=== PATIENT | female | born 1985 | race Caucasian/White ===

== ENCOUNTER 2025-03-03 14:18 | Outpatient (CLI) | payer OTHER, SELFPAY ==
[2025-03-03 15:54] LABS: HCG,Quantitative 158880 mIU/ml (0-5.42)
[2025-03-04 08:13] LABS: Progesterone 28.1 ng/mL (.)
== END 2025-03-03 23:59 | disposition home or self-care (01) ==
PROVIDERS: Visit Provider Obstetrics & Gynecology
DX: Z32.01 Encounter for pregnancy test, result positive (principal)
CPT/HCPCS: 36415; 84144; 84702

== ENCOUNTER 2025-04-13 09:34 | Outpatient (CLI) | payer OTHER, SELFPAY ==
[2025-04-13 10:49] LABS: Basophils % 0.6 % (0.1-2.0); Eosinophils # 0.1 Kmm3 (0.0-0.4); Eosinophils % 1.3 % (0.1-12.0); Hematocrit 35.7 % (37.0-47.0); Hemoglobin 12.7 g/dL (12.2-16.2); Immature Granulocytes # 0.02 10^3uL; Immature Granulocytes % 0.3 %; Lymphocytes # 1.9 K/mm3 (0.7-4.5); Lymphocytes % 30.6 % (10-50); Mean Corpuscular HGB Conc 35.6 g/dL (31.8-35.4); Mean Corpuscular Hemoglobin 32.1 pg (27.0-31.2); Mean Corpuscular Volume 90.2 fl (81-99); Mean Platelet Volume 9.1 fl (7.4-10.4); Monocytes # 0.4 K/mm3 (0.1-1.0); Monocytes % 5.5 % (1.7-9.3); Neutrophils # 3.9 K/mm3 (1.8-7.8); Neutrophils % 61.7 % (37.0-80.0); Nucleated Red Blood Cells # 0 10^3/uL; Nucleated Red Blood Cells % 0 %; Platelet Count 339 K/mm3 (142-424); Red Blood Count 3.96 M/mm3 (4.20-5.40); Red Cell Distribution Width 12.2 % (11.5-17.5); Red Cell Distribution Width-SD 40.2 fL; White Blood Count 6.4 K/mm3 (4.8-10.8)
[2025-04-13 11:43] LABS: RPR W/RFX Titers Nonreactive (Nonreactive)
[2025-04-13 11:56] LABS: HIV Combo NEGATIVE (Negative)
[2025-04-13 12:04] LABS: Hepatitis C Ab Qual. W/ RFX NEGATIVE (Negative)
[2025-04-14 05:12] LABS: Hepatitis B Surface Antigen Negative (Negative)
[2025-04-14 06:33] LABS: Rubella Antibodies, IgG 4.83 index (Immune >0.99)
== END 2025-04-13 23:59 | disposition home or self-care (01) ==
LOC: LAB 09:35
PROVIDERS: Visit Provider Obstetrics & Gynecology
DX: Z34.01 Encounter for supervision of normal first pregnancy, first trimester (principal); Z3A.12 12 weeks gestation of pregnancy
CPT/HCPCS: 36415; 85025; 86592; 86762; 86803; 86850; 87340; 87389

== ENCOUNTER 2025-05-08 08:22 | Outpatient (CLI) | payer OTHER, SELFPAY ==
--- NOTE | 2025-05-08 08:30 | US_ITS ---
PROCEDURE: US OB TRANSVAGINAL CLINICAL INDICATION: Placental Evaluation, Hx Previa, Cervical length COMPARISON: US US OB FOLLOW UP from 05/08/2025 FINDINGS: Transvaginal sonographic images of the pelvis were obtained. From her last menstrual period she is 16weeks 2days. The cervix measures 4.27 cm in length. The fetus is active within the uterine cavity and appears to be in the breech presentation. There is no evidence of placenta previa. The placenta measures 4.75 cm from the internal cervical os. IMPRESSION: 1. Active fetus in the breech position. There is no evidence of placenta previa. 2. The cervix measures 4.27 cm in length transvaginally. Dictated by: Nash Villafuerte MD 05/08/2025 12:50 Nash Villafuerte MD in [place] 05/08/2025 12:50
--- NOTE | 2025-05-08 08:38 | US_ITS ---
PROCEDURE: US OB FOLLOW UP CLINICAL INDICATION: Check placenta/cervical length COMPARISON: US US OB TRANSVAGINAL from 05/08/2025 FINDINGS: Transabdominal sonographic images of the pelvis were obtained. The following parameters are obtained: From her established due date she is 16weeks 2days Viable fetus in the breech presentation with an anterior placenta grade 1. The placenta measures 3.24 cm away from the internal cervical os. The cervix measures 3.24 cm transabdominally In a previous transvaginal ultrasound done today the cervix measures 4.27 cm transvaginally heart rate: 149bpm bpm. Amniotic fluid: Subjectively appears adequate No obvious anomalies evident. profile seen, stomach, cord insertion, four chamber heart appear normal. IMPRESSION: 1. Viable fetus in the breech presentation with an anterior placenta grade 1. The placenta seems to be well away from the cervix and measures 3.24 cm away from the internal os. 2. Limited anatomical scan appears normal. 3. Suggest repeat ultrasound in 4 weeks for complete anatomical scan. Dictated by: Nash Villafuerte MD 05/08/2025 13:07 Nash Villafuerte MD in [place] 05/08/2025 13:07
== END 2025-05-08 23:59 | disposition home or self-care (01) ==
LOC: RAD 08:22
PROVIDERS: PCP Obstetrics & Gynecology; Visit Provider Obstetrics & Gynecology
DX: O32.1XX0 Maternal care for breech presentation, not applicable or unspecified (principal); O09.292 Supervision of pregnancy with other poor reproductive or obstetric history, second trimester; Z36.86 Encounter for antenatal screening for cervical length; Z36.89 Encounter for other specified antenatal screening; Z3A.16 16 weeks gestation of pregnancy
CPT/HCPCS: 76816; 76817

== ENCOUNTER 2025-06-06 12:49 | Outpatient (CLI) | payer OTHER, SELFPAY ==
--- NOTE | 2025-06-06 13:00 | US_ITS ---
PROCEDURE: US OB /MATERNAL DETAIL CLINICAL INDICATION: 20 week Anatomy Scan COMPARISON: US US OB FOLLOW UP from 05/08/2025 US US OB TRANSVAGINAL from 05/08/2025 FINDINGS: Transabdominal sonographic images of the pelvis were obtained. From her established due date she is 20 weeks 3 days. Single viable intrauterine gestation. Breech position. Placenta: Anteriorplacenta grade 1. The placenta is low lying and measures 1.6-1.7 cm from the internal os. There is an average amount of fluid. The cervix appears satisfactory. Closed and measuring 5.3 cm in length. Complete survey performed and was unremarkable on the submitted images as in PACS. No discrete anomalies identified on survey imaging by technologist. Active fetus. Three-vessel cord with satisfactory umbilical cord insertion. 4- chamber heart noted. Situs, aortic arch, LVOT, RVOT, three-vessel view appear normal. Survey of brain & ventricles Unremarkable. Cerebellum, thalamus, choroid plexus, cisterna magna appear normal. Face and neck survey unremarkable. Profile, nasion, lips and nose appeared normal. Diaphragm and chest views unremarkable. Abdomen: Both kidneys noted and unremarkable. Stomach and bladder noted and satisfactory. There is bilateral renal pelvis dilation measuring 4.4 mm and 3.4 mm Spine: Survey of the spine satisfactory with no anomalies identified nor imaged. Cervical, thoracic, lower spine appear normal. Both arms and legs noted. Amniotic Fluid: Adequate. MVP 5.12 cm Measurements: Average ultrasound age 21weeks 3days. Estimated due date by ultrasound age 1110/14/2025. Estimated weight 405g BPD = 21weeks 6days HC = 21weeks 2days AC = 21weeks 3days FL = 21weeks 0 days Growth Percentile= 84 Heart Rate = 140bpm Cerebellum = 20weeks Humerus = 21weeks 4days HC/AC is 1.16 FL/BPD is 0.67 FL/AC is 0.21 IMPRESSION: 1. Viable fetus in the breech presentation with an anterior placenta grade 1. The placenta is low lying measuring 1.6-1.7 cm from the internal os. 2. The fluid is within normal limits with an MVP 5.12 cm. 3. Anatomical scan appears normal. 4. The spine was difficult to examine and would suggest repeat scan at 28 weeks. There is bilateral mild renal pelvis dilation and would suggest rescanning this at 28 weeks as well. Would suggest transvaginal views to look at the low lying placenta at 28 weeks as well. 5. biometry is consistent with a dates. Dictated by: Nash Villafuerte MD 06/06/2025 14:32 Nash Villafuerte MD in [place] 06/06/2025 14:32
== END 2025-06-06 23:59 | disposition home or self-care (01) ==
LOC: RAD 12:49
PROVIDERS: PCP Obstetrics & Gynecology; Visit Provider Obstetrics & Gynecology
DX: O32.1XX0 Maternal care for breech presentation, not applicable or unspecified (principal); O44.42 Low lying placenta NOS or without hemorrhage, second trimester; O28.2 Abnormal cytological finding on antenatal screening of mother; O09.292 Supervision of pregnancy with other poor reproductive or obstetric history, second trimester; Z36.3 Encounter for antenatal screening for malformations; Z3A.20 20 weeks gestation of pregnancy
CPT/HCPCS: 76811

== ENCOUNTER 2025-07-10 13:45 | Outpatient (CLI) | payer OTHER, SELFPAY ==
[2025-07-10 14:59] LABS: Hematocrit 32.3 % (37.0-47.0); Hemoglobin 11.0 g/dL (12.2-16.2); Immature Granulocytes % 0.7 %; Mean Corpuscular HGB Conc 34.1 g/dL (31.8-35.4); Mean Corpuscular Hemoglobin 32.2 pg (27.0-31.2); Mean Corpuscular Volume 94.4 fl (81-99); Nucleated Red Blood Cells % 0 %; Platelet Count 250 K/mm3 (142-424); Red Blood Count 3.42 M/mm3 (4.20-5.40); Red Cell Distribution Width-SD 45.2 fL; White Blood Count 8.1 K/mm3 (4.8-10.8)
[2025-07-10 17:06] LABS: RPR W/RFX Titers Nonreactive (Nonreactive)
== END 2025-07-10 23:59 | disposition home or self-care (01) ==
LOC: LAB 13:46
PROVIDERS: Visit Provider Obstetrics & Gynecology
DX: O09.899 Supervision of other high risk pregnancies, unspecified trimester (principal); Z87.59 Personal history of other complications of pregnancy, childbirth and the puerperium
CPT/HCPCS: 36415; 85025; 86592

== ENCOUNTER 2025-07-17 17:47 | Observation (INO) | payer OTHER, SELFPAY ==
[2025-07-17 15:00] VITALS: BMI 23.0
[2025-07-17 15:04] LABS: Microscopic, Urine URINE MICROSCOPIC (MICROSCOPIC)
[2025-07-17 15:09] VITALS: BP 129/77; PULSE 76; RESP 17; TEMP 36.6; O2SAT 100; BMI 23.0
--- NOTE | 2025-07-17 15:38 | US_ITS ---
FINAL REPORT CLINICAL HISTORY: back pain COMPARISON: None FINDINGS: RENAL ULTRASOUND Ultrasound images of the kidneys were obtained. The right kidney measures 13.7 cm in length. The left kidney measures 11.5 cm in length. There is moderate to marked right hydronephrosis and mild left hydronephrosis. The spleen is within normal limits. IMPRESSION: Bilateral hydronephrosis. Abdomen and pelvis CT scan could better evaluate for source and level of obstruction. Reviewed, Interpreted and Dictated by Timothy Johnston MD Transcribed by Silvia Tineo Authenticated and [facility]
[2025-07-17 15:44] LABS: Bilirubin,Urine Negative (Negative); Color,Urine YELLOW (Yellow); Glucose,Urine (UA) Negative (Negative); Ketones,Urine Negative (Negative); Leukocyte Esterase,Urine Negative (Negative); PH,Urine 7.0 (5.0-8.5); Protein,Urine TRACE (Negative); Specific Gravity, Urine 1.020 (1.005-1.030); Urobilinogen,Urine 0.2 EU/dl (0.2)
[2025-07-17] MEDS: BUTORPHANOL TARTRATE 1 MG/ML VIAL IV (15:51)
[2025-07-17 16:02] LABS: Hematocrit 32.3 % (37.0-47.0); Hemoglobin 11.4 g/dL (12.2-16.2); Immature Granulocytes % 0.7 %; Mean Corpuscular HGB Conc 35.3 g/dL (31.8-35.4); Mean Corpuscular Hemoglobin 33.1 pg (27.0-31.2); Mean Corpuscular Volume 93.9 fl (81-99); Nucleated Red Blood Cells % 0 %; Platelet Count 232 K/mm3 (142-424); Red Blood Count 3.44 M/mm3 (4.20-5.40); Red Cell Distribution Width-SD 44.3 fL; White Blood Count 11.7 K/mm3 (4.8-10.8)
[2025-07-17 16:13] LABS: Albumin Level 3.9 g/dl (3.5-5.0); Chloride 104 mmol/L (98-107); Potassium 3.3 mmoL/L (3.5-5.1); Sodium 131 mmol/L (136-145)
[2025-07-17] MEDS: LACTATED RINGERS 1000ML 1,000 ML 999 ML IV (16:14)
[2025-07-17 16:15] LABS: Blood Urea Nitrogen 15 mg/dl (7-17); Creatinine Clearance Estimated 134 mL/min (50-200); Creatinine,Serum 0.60 mg/dl (0.52-1.04); Estimated Glomerular Filt Rate 112 ml/min (>60); GFR (African American) 135 ML/MIN (>60)
[2025-07-17 16:16] LABS: Alanine Aminotransferase 16 U/L (12-78); Albumin/Globulin Ratio 1.3 (1.1-1.8); Alkaline Phosphatase 57 U/L (38-126); Anion Gap 12.3 mEq/L (5-15); Aspartate Amino Transferase 28 U/L (14-36); Bilirubin,Total 0.4 mg/dl (0.2-1.3); Calcium 8.8 mg/dl (8.4-10.2); Carbon Dioxide 18 mmol/L (22.0-30.0); Globulin 2.9 g/dL (1.3-3.2); Glucose 110 mg/dl (74-100); Total Protein,Serum 6.8 g/dl (6.3-8.2)
[2025-07-17 16:35] LABS: RBC,Urine 20-50 #/hpf (0-3)
[2025-07-17 16:36] LABS: Bacteria,Urine 3+ /lpf; WBC,Urine Occasional #/hpf (0-3)
[2025-07-17] MEDS: CYCLOBENZAPRINE 10MG TABLET 5 MG PO (17:11)
[2025-07-17] MEDS: OXYCODONE 5MG IMMEDIATE RELEASE TABLET 5 MG PO ×2 (17:58→18:14)
[2025-07-17] MEDS: ONDANSETRON 4MG/2ML VIAL 4 MG IV (18:00)
[2025-07-17] MEDS: TAMSULOSIN 0.4MG CAPSULE 0.4 MG PO (18:15)
[2025-07-17] MEDS: LACTATED RINGERS 1000ML 1,000 ML 100 ML IV (18:15)
[2025-07-17] MEDS: MAGNESIUM SULFATE 2 GM, THIAMINE HCL 100 MG, MVI, ADULT NO.1 WITH VIT K 10 ML in LACTAT... IV (19:44)
[2025-07-17] MEDS: SODIUM CHLORIDE 0.9% 25ML BAG 25 ML IV (19:46)
[2025-07-17] MEDS: PROMETHAZINE HCL 25MG/ML 1ML VIAL 12.5 MG IV (19:46)
[2025-07-17] MEDS: ACETAMINOPHEN 1,000 MG/100 ML ML 400 MG IV (19:47)
[2025-07-18 07:53] VITALS: BP 115/56; PULSE 76; RESP 18; TEMP 36.9; O2SAT 96
--- NOTE | 2025-07-18 10:09 | EXP.HPDC ---
General Admission date:: 07/17/25 Discharge date: 07/18/25 *Admission Date: 07/17/25 *Chief complaint: Back pain *History of present illness: Joy is a pleasant 39-year-old who was admitted for unrelenting back pain. She had aRenal ultrasound which was ultimately nonrevealing but given clinical picture suspicious for nephrolithiasis. She did have bilateral hydronephrosis, with moderate to marked right hydronephrosis. Overnight she required stay at all at 4 PM followed by a 5 mg cyclobenzaprine at 5 PM. She also had 2 doses of oxycodone 5 yesterday at 6 and 615. This close abnormal dosing was secondary to vomiting in between doses. She was given antiemetics as well as 0.4 mg of Flomax daily. She also received a gram of Tylenol. This morning the patient reports that she thinks that she passed her kidney stone she is feeling much better and she has absolutely no pain. Infant has been reactive PFSH PFSH Disclaimer: The information contained in this section may have been updated after the patient was seen, as this information can be updated by other users. Medical History Hx of attention deficit hyperactivity disorder Surgical History Hx of wisdom tooth extraction Hx of knee surgery Hx of section Family History Grandmother Cancer Paternal- Breast cancer Social History Smoking Status: Never smoker alcohol intake: never current occupational status: unemployed Travel in the last 8 weeks?: None Have you lived/traveled outside US in past 30 days?: No Contact w/someone who lives/traveled outside US past 30 days?: No Exposure to someone with infectious disease in past 14 days?: No Do you have a fever (greater than 100.4 F or 38 C)?: No Have you tested positive for COVID-19?: No Exposed to someone with COVID-19 in past 14 days?: No Do you have a sore throat?: No Do you have a cough?: No Do you have any weakness?: No Do you have any diarrhea?: No Are you experiencing any unusual bleeding?: No Do you have any muscle aches/pain?: No Do you have any abdominal pain?: No Are you experiencing loss of taste or smell?: No Other Medical History Have you received the Flu Vaccine for this season: No Have you received the Pneumonia Vaccine: No Exam Data for Last 24 hours Vital signs and Labs for Last 24 Hours: Temp Pulse Resp BP Pulse Ox O2 Del Method 98.4 F 76 18 115/56 L 96 Room Air 07/18/25 07:53 07/18/25 07:53 07/18/25 07:53 07/18/25 07:53 07/18/25 07:53 07/18/25 07:53 Laboratory Results - last 24 hr 07/17/25 14:58: Urine Color Yellow, Urine Appearance Slightly cloudy, Urine pH 7.0, Ur Specific [place] 1.020, Urine Protein Trace, Urine Glucose (UA) Negative, Urine Ketones Negative, Urine Blood 2+ A, Urine Nitrate Negative, Urine Bilirubin Negative, Urine Urobilinogen 0.2, Ur Leukocyte Esterase Negative, Urine RBC 20-50, Urine WBC Occasional, Ur Squamous Epith Cells 3-5, Urine Bacteria 3+ 07/17/25 15:50: WBC 11.7 H, RBC 3.44 L, Hgb 11.4 L, Hct 32.3 L, MCV 93.9, MCH 33.1 H, MCHC 35.3, RDW 13.0, Plt Count 232, MPV 9.2, Neut % (Auto) 73.9, Lymph % (Auto) 19.4, Page % (Auto) 5.4, Eos % (Auto) 0.3, Baso % (Auto) 0.3, Neut # (Auto) 8.6 H, Lymph # (Auto) 2.3, Page # (Auto) 0.6, Eos # (Auto) 0.0, Baso # (Auto) 0.0, Sodium 131 L, Potassium 3.3 L, Chloride 104, Carbon Dioxide 18 L, Anion Gap 12.3, BUN 15, Creatinine 0.60, Estimated Creat Clear 134, Estimated GFR 112, Est GFR ( Amer) 135, Glucose 110 H, Calcium 8.8, Total Bilirubin 0.4, AST 28, ALT 16, Alkaline Phosphatase 57, Total Protein 6.8, Albumin 3.9, Globulin 2.9, Albumin/Globulin Ratio 1.3 I & O for Last 24 hours: Intake & Output 07/15/25 07/16/25 07/17/25 07/18/25 23:59 23:59 23:59 23:59 Intake Total 1100 / 1100 2014 Balance 1100 / 1100 2014 Weight 147 lb Constitutional Constitutional: no acute distress *Routine HEENT Exam Head: Present normocephalic Eye: Present EOMI and PERRL ENT: Present mucous membranes moist *Routine Neck Exam Neck: Present supple; Absent lymphadenopathy *Routine Respiratory Exam Respiratory: Present CTA bilaterally *Routine Cardiovascular Exam Cardiovascular: Present RRR *Routine Abdominal Exam Abdominal: Present soft and normoactive bowel sounds; Absent tenderness *Routine Rectal Exam Rectal:: deferred *Routine Genitalia Exam Genitalia:: deferred *Routine Extremities Exam Extremities: Absent cyanosis, clubbing or edema Routine Back/Spine/Pelvis Exam Back/Spine: Present CVA tenderness (Resolved this morning on discharge) *Routine Skin Exam Skin: Present warm; Absent rash *Routine Neurological Exam Neurological: Present alert and oriented X3 Meds Home Medications and Allergies Home Medications ?Medication ?Instructions ?Recorded ?Confirmed ?Type omega-3 fatty acids 1,000 mg 1,000 mg PO DAILY 03/17/25 07/18/25 History capsule vits no.126-ferrous fum 1 tab PO DAILY 03/17/25 07/18/25 History 28 mg iron-folic acid 800 mcg tablet (Classic ) ferrous sulfate 325 mg (65 mg 325 mg PO DAILY 04/13/25 07/18/25 History iron) tablet,delayed release tamsulosin 0.4 mg capsule 0.4 mg PO DAILY #7 caps 07/18/25 Rx New Prescriptions to Start Prescriptions: tamsulosin Katie Watts Allergies Allergy/AdvReac Type Severity Reaction Status Date / Time No Known Allergies Allergy Verified 07/05/25 08:38 Hospital Course Hospital Course Hospital Course: Joy is a wonderful 39-year-old who was admitted secondary to back pain, she was diagnosed with a suspected kidney stone. She passed that stone this morning and is feeling much better and desires discharge home. She has an office visit scheduled for 08/02/2025 Results Data Completed and Pending Labs on day of discharge: Labs from last 24 hours 07/17/25 07/17/25 15:50 14:58 WBC 11.7 H RBC 3.44 L Hgb 11.4 L Hct 32.3 L MCV 93.9 MCH 33.1 H MCHC 35.3 RDW 13.0 Plt Count 232 MPV 9.2 Neut % (Auto) 73.9 Lymph % (Auto) 19.4 Page % (Auto) 5.4 Eos % (Auto) 0.3 Baso % (Auto) 0.3 Neut # (Auto) 8.6 H Lymph # (Auto) 2.3 Page # (Auto) 0.6 Eos # (Auto) 0.0 Baso # (Auto) 0.0 Sodium 131 L Potassium 3.3 L Chloride 104 Carbon Dioxide 18 L Anion Gap 12.3 BUN 15 Creatinine 0.60 Estimated Creat Clear 134 Estimated GFR 112 Est GFR ( Amer) 135 Glucose 110 H Calcium 8.8 Total Bilirubin 0.4 AST 28 ALT 16 Alkaline Phosphatase 57 Total Protein 6.8 Albumin 3.9 Globulin 2.9 Albumin/Globulin Ratio 1.3 Urine Color Yellow Urine Appearance Slightly cloudy Urine pH 7.0 Ur Specific Challis 1.020 Urine Protein Trace Urine Glucose (UA) Negative Urine Ketones Negative Urine Blood 2+ A Urine Nitrate Negative Urine Bilirubin Negative Urine Urobilinogen 0.2 Ur Leukocyte Esterase Negative Urine RBC 20-50 Urine WBC Occasional Ur Squamous Epith Cells 3-5 Urine Bacteria 3+ DS: Diagnosis Discharge Diagnosis (1) Nephrolithiasis: Status: Acute Code(s): N20.0 - Calculus of kidney Discharge Plan Disposition Patient Disposition: Home, Self-Care Follow up Plan Follow up with: Katie Watts DO [Staff Physician, [employer]] - Enter time for follow up Prescriptions/Medication Reconciliation: New tamsulosin 0.4 mg Capsule 0.4 mg PO DAILY Qty: 7 0RF Continued Classic 28 mg iron- 800 mcg tablet 1 tab PO DAILY omega-3 fatty acids 1,000 mg capsule 1,000 mg PO DAILY ferrous sulfate 325 mg (65 mg iron) tablet,delayed release (DR/EC) 325 mg PO DAILY Problem Reconciliation Problems Reviewed?: Yes Patient Discharge Instructions ACTIVITY: Continue current activity DIET: regular diet Additional Instructions: Continue to drink plenty of water, heating pad for back pain and follow up with Dr. Watts as scheduled. Patient Instructions: DI for Hydronephrosis-Adult, Antepartum Care Print Language: Greenlandic Providers Primary Care Provider: Provider,Referral Admit Provider: Sangeeta Brand Attending Provider: Sangeeta Brand
== END 2025-07-18 10:25 | disposition home or self-care (01) ==
LOC: OBOUT 17:48 → OB 17:48
PROVIDERS: Admitting Provider Obstetrics & Gynecology; Visit Provider Obstetrics & Gynecology
DX: N13.2 Hydronephrosis with renal and ureteral calculous obstruction (principal); Z86.59 Personal history of other mental and behavioral disorders
CPT/HCPCS: 59025; 76770; 80053; 81001; 85025; 87086; 96361; 96374; 96375; G0378; J0131; J0595; J2405; J2550; J3411; J3475; J7120

== ENCOUNTER 2025-08-01 08:01 | Outpatient (CLI) | payer OTHER, SELFPAY ==
--- NOTE | 2025-08-01 08:00 | US_ITS ---
PROCEDURE: US OB FOLLOW UP CLINICAL INDICATION: kidney and spinal views, low lying placenta COMPARISON: US US OB FOLLOW UP from 05/08/2025 US US OB TRANSVAGINAL from 05/08/2025 US US OB /MATERNAL DETAIL from 06/06/2025 FINDINGS: Transabdominal sonographic images of the pelvis were obtained. The following parameters are obtained: From her established due date she is 28weeks 3days Viable fetus in the breech presentation with an anterior placenta grade 1. The placenta measured transvaginally is well away from the internal cervical os. At least 7 cm. The cervix measures 4.43cm transvaginally in length. heart rate: 132bpm bpm. Amniotic fluid: MVP 4.24 cm No obvious anomalies evident. profile seen, stomach, bladder, kidneys, three-vessel cord, four chamber heart appear normal. There is mild left renal pelvis dilation measuring 5.5 mm. IMPRESSION: 1. Viable fetus in the breech presentation with an anterior placenta grade 1. 2. The placenta is no longer previa and well away from the internal cervical os. 3. The fluid is within normal limits with an MVP 4.24 cm. 4. Limited anatomical scan appears normal. 5. The spine is seen in its entirety and appears normal. 6. There continues to be minimal left renal pelvis dilation measuring 5.5 mm. Suggest follow-up at 36 weeks. Dictated by: Nash Villafuerte MD 08/01/2025 17:39 Nash Villafuerte MD in [place] 08/01/2025 17:39
== END 2025-08-01 23:59 | disposition home or self-care (01) ==
LOC: RAD 08:02
PROVIDERS: PCP Obstetrics & Gynecology; Visit Provider Obstetrics & Gynecology
DX: O32.1XX0 Maternal care for breech presentation, not applicable or unspecified (principal); O99.891 Other specified diseases and conditions complicating pregnancy; O44.43 Low lying placenta NOS or without hemorrhage, third trimester; O09.293 Supervision of pregnancy with other poor reproductive or obstetric history, third trimester; O09.893 Supervision of other high risk pregnancies, third trimester; N28.89 Other specified disorders of kidney and ureter; Z3A.28 28 weeks gestation of pregnancy; Z36.2 Encounter for other antenatal screening follow-up
CPT/HCPCS: 76816; 76817

== ENCOUNTER 2025-08-02 09:30 | Outpatient (CLI) | payer OTHER, SELFPAY | END 2025-08-02 23:59 | disposition home or self-care (01) | LOC: LAB.DROPOF 08-03 13:11 | PROVIDERS: PCP Obstetrics & Gynecology; Visit Provider Obstetrics & Gynecology | DX: O09.899 Supervision of other high risk pregnancies, unspecified trimester (principal); O09.299 Supervision of pregnancy with other poor reproductive or obstetric history, unspecified trimester; N20.0 Calculus of kidney; Z3A.00 Weeks of gestation of pregnancy not specified | CPT/HCPCS: 87086; 87088 ==

== ENCOUNTER 2025-08-15 09:15 | Outpatient (CLI) | payer OTHER, SELFPAY | END 2025-08-15 23:59 | disposition home or self-care (01) | LOC: LAB.DROPOF 08-16 10:40 | PROVIDERS: PCP Obstetrics & Gynecology; Visit Provider Obstetrics & Gynecology | DX: O23.40 Unspecified infection of urinary tract in pregnancy, unspecified trimester (principal); R31.9 Hematuria, unspecified; Z3A.00 Weeks of gestation of pregnancy not specified | CPT/HCPCS: 87086 ==

== ENCOUNTER 2025-09-12 10:00 | Outpatient (CLI) | payer OTHER, SELFPAY | END 2025-09-12 23:59 | disposition home or self-care (01) | LOC: LAB.DROPOF 09-13 14:06 | PROVIDERS: PCP Obstetrics & Gynecology; Visit Provider Obstetrics & Gynecology | DX: O23.40 Unspecified infection of urinary tract in pregnancy, unspecified trimester (principal); O09.529 Supervision of elderly multigravida, unspecified trimester; Z3A.00 Weeks of gestation of pregnancy not specified | CPT/HCPCS: 87086 ==

== ENCOUNTER 2025-09-19 08:33 | Outpatient (CLI) | payer OTHER, SELFPAY ==
--- OUTSIDE RECORDS SUMMARY | 2025-09-19 08:35 | XMS_ITS | Patient Health Record ---
Author Organization [facility] Address [address] [place] [address] Support Name Relationship Address Phone ALANNA DANGELO Guarantor Unknown Unavailable Allergies No Known Allergies Reason For Referral No Information Plan Of Treatment No Information Insurance Providers Payer Name Payer Address Payer Phone Subscriber Number Group Number Insured Name Patient Relationship to Insured Coverage Start Date Coverage End Date [employer] [address] [place], [place] [id number] ALANNA DANGELO Self - patient is the insured
--- NOTE | 2025-09-19 08:41 | US_ITS ---
PROCEDURE: US OB FOLLOW UP CLINICAL INDICATION: position and growth COMPARISON: US US OB FOLLOW UP from 05/08/2025 US US OB TRANSVAGINAL from 05/08/2025 US US OB /MATERNAL DETAIL from 06/06/2025 US US OB FOLLOW UP from 08/01/2025 FINDINGS: Transabdominal sonographic images of the pelvis were obtained. The following parameters are obtained: From her established due date she is 35weeks 3days Viable fetus in the cephalic presentation with an anterior placenta grade 2. The cervix measures 3.15 cm in length heart rate: 134bpm bpm. Average ultrasound age 37 weeks 2 days Estimated weight 3,137 grams, 6 lb 15 oz BPD: 37weeks 3days, 94 percentile HC: 37weeks 1day, 61 percentile AC: 37weeks 3days, 95 percentile FL: 36weeks 6days, 79 percentile HC/AC: 0.98 FL/BPD: 0.78 FL/AC: 0.22 Growth percentile: 91 Amniotic fluid index: 13.8cm, MVP 4.36 cm No obvious anomalies evident. profile seen, stomach, bladder, kidneys, three-vessel cord, four chamber heart appear normal. IMPRESSION: 1. Viable fetus in the cephalic presentation with an anterior placenta grade 2. 2. The fluid is within normal limits with an amniotic fluid index 13.8 cm, MVP 4.36 cm. 3. There has been good interval growth with the fetus currently 91st percentile. The abdominal circumference is 2 weeks ahead. 4. Limited anatomical scan appears normal. Dictated by: Nash Villafuerte MD 09/19/2025 12:17 Nash Villafuerte MD in [place] 09/19/2025 12:17
== END 2025-09-19 23:59 | disposition home or self-care (01) ==
LOC: RAD 08:34
PROVIDERS: PCP Obstetrics & Gynecology; Visit Provider Obstetrics & Gynecology
DX: O32.1XX0 Maternal care for breech presentation, not applicable or unspecified (principal); O09.293 Supervision of pregnancy with other poor reproductive or obstetric history, third trimester; O09.893 Supervision of other high risk pregnancies, third trimester; O36.5930 Maternal care for other known or suspected poor fetal growth, third trimester, not applicable or unspecified; Z3A.35 35 weeks gestation of pregnancy
CPT/HCPCS: 76816

== ENCOUNTER 2025-09-27 09:30 | Outpatient (CLI) | payer OTHER, SELFPAY ==
--- OUTSIDE RECORDS SUMMARY | 2025-09-28 13:31 | XMS_ITS | Patient Health Record ---
Author Organization [facility] Address [address] [place] [address] Support Name Relationship Address Phone GABRIELLA DANGELO Guarantor Unknown Unavailable Allergies No Known Allergies Reason For Referral No Information Plan Of Treatment No Information Insurance Providers Payer Name Payer Address Payer Phone Subscriber Number Group Number Insured Name Patient Relationship to Insured Coverage Start Date Coverage End Date [employer] [address] [place], [place] [id number] GABRIELLA DANGELO Self - patient is the insured
== END 2025-09-27 23:59 | disposition home or self-care (01) ==
LOC: LAB.DROPOF 09-28 13:27
PROVIDERS: PCP Obstetrics & Gynecology; Visit Provider Obstetrics & Gynecology
DX: Z34.93 Encounter for supervision of normal pregnancy, unspecified, third trimester (principal)
CPT/HCPCS: 86403

== ENCOUNTER 2025-10-11 14:27 | Outpatient (CLI) | payer OTHER, SELFPAY ==
--- NOTE | 2025-10-11 14:30 | US_ITS ---
PROCEDURE: US OB BIOPHYSICAL PROFILE CLINICAL INDICATION: BPP w/ ADRIENNE COMPARISON: US US OB FOLLOW UP from 05/08/2025 US OB TRANSVAGINAL from 05/08/2025 US OB /MATERNAL DETAIL from 06/06/2025 [facility] OB FOLLOW UP from 08/01/2025 [facility] OB FOLLOW UP from 09/19/2025 FINDINGS: Transabdominal sonographic images of the uterus were obtained. From her established due date she is 38weeks 4days. The following parameters are obtained: Viable Fetus in the cephalic presentation with an anterior placenta grade 2. Cervix measures 3.55 cm in length. Measurements: heart Rate = 112bpm Amniotic fluid index: 14.84cm, MVP 6.61 cm. Qualitative AFV:2 Breathing movements: 2 Gross Body Movements: 2 Tone: 2 Biophysical profile score: 8 No obvious anomalies evident.Kidneys, profile, stomach, bladder, four-chamber heart, three-vessel cord appear normal. IMPRESSION: 1. Viable fetus in the cephalic presentation with an anterior placenta grade 2. 2. The fluid is within normal limits with an amniotic fluid index 14.84 cm, MVP 6.61 cm. 3. Biophysical profile is 8/8 with good breathing movement and movement seen. 4. Limited anatomical scan appears normal. Dictated by: Nash Villafuerte MD 10/11/2025 17:02 Nash Villafuerte MD in [place] 10/11/2025 17:02
--- OUTSIDE RECORDS SUMMARY | 2025-10-11 14:30 | XMS_ITS | Patient Health Record ---
Author Organization [facility] Address [address] [place] [address] Support Name Relationship Address Phone GABRIELLA DANGELO Guarantor Unknown Unavailable Allergies No Known Allergies Reason For Referral No Information Plan Of Treatment No Information Insurance Providers Payer Name Payer Address Payer Phone Subscriber Number Group Number Insured Name Patient Relationship to Insured Coverage Start Date Coverage End Date [employer] [address] [place], [place] [id number] GABRIELLA DANGELO Self - patient is the insured
== END 2025-10-11 23:59 | disposition home or self-care (01) ==
LOC: RAD 14:27
PROVIDERS: PCP Obstetrics & Gynecology; Visit Provider Obstetrics & Gynecology
DX: O36.5930 Maternal care for other known or suspected poor fetal growth, third trimester, not applicable or unspecified (principal); O34.219 Maternal care for unspecified type scar from previous cesarean delivery; O09.513 Supervision of elderly primigravida, third trimester; Z3A.38 38 weeks gestation of pregnancy
CPT/HCPCS: 76819

== ENCOUNTER 2025-10-11 19:22 | Inpatient (IN) | payer OTHER, SELFPAY ==
[2025-10-11 18:14] VITALS: BMI 28.6
[2025-10-11 18:30] LABS: Microscopic, Urine URINE MICROSCOPIC (MICROSCOPIC)
[2025-10-11 18:37] LABS: Bilirubin,Urine Negative (Negative); Color,Urine YELLOW (Yellow); Glucose,Urine (UA) Negative (Negative); Ketones,Urine TRACE (Negative); Leukocyte Esterase,Urine Negative (Negative); PH,Urine 6.5 (5.0-8.5); Protein,Urine Negative (Negative); Specific Gravity, Urine 1.010 (1.005-1.030); Urobilinogen,Urine 0.2 EU/dl (0.2)
[2025-10-11 18:45] LABS: Fetal Membrane Rupture (Rapid) Positive (Negative)
[2025-10-11 18:58] VITALS: BP 132/84; PULSE 99; RESP 19; TEMP 36.9; O2SAT 99; BMI 28.5
[2025-10-11 19:18] LABS: Hematocrit 35.8 % (37.0-47.0); Hemoglobin 13.0 g/dL (12.2-16.2); Immature Granulocytes % 0.5 %; Mean Corpuscular HGB Conc 36.3 g/dL (31.8-35.4); Mean Corpuscular Hemoglobin 34.2 pg (27.0-31.2); Mean Corpuscular Volume 94.2 fl (81-99); Nucleated Red Blood Cells % 0 %; Platelet Count 229 K/mm3 (142-424); Red Blood Count 3.80 M/mm3 (4.20-5.40); Red Cell Distribution Width-SD 42.9 fL; White Blood Count 9.5 K/mm3 (4.8-10.8)
[2025-10-11 21:52] VITALS: BP 114/71; PULSE 85; RESP 18; TEMP 36.6; O2SAT 98
[2025-10-12] MEDS: OXYTOCIN/RINGERS LACTATE 30 UNITS/500 ML BAG 999 UNITS IV (08:29)
--- NOTE | 2025-10-12 08:50 | P.HP_ITS ---
OB - H&P: HPI Antepartum History of Present Illness Chief complaint: Leakage of fluid History of present illness: Mrs Lis Reddy is a 40 yo at 38w5d who presented to [facility] L&D on 10/11/25 with complaint of leakage of fluid. She first noticed leakage of fluid around 0200 on 10/11. She reports membrane sweep at office visit 10/10. She had an BPP and ADRIENNE the mornong of 10/11. BPP 8/8 and ADRIENNE 14.84. She admits to further leakage of fluid after ultrasound. On L&D she was examined and Amnisure was positive. Cervical exam was 1.5/50/-2. She admits to irregular contractions. Baby was active. She has had good care. GBS negative History of Present Criteria for establishing EDC:: LMP confirmed by 1st trimester US care: good care Ultrasounds: normal mid trimester US Obstetrical complications: previous (x 1) Medical complications: none Labs Blood type: AB (+) positive Rubella: immune RPR/VDRL: nonreactive GBS status: negative HBsAG: negative [facility] Disclaimer: The information contained in this section may have been updated after the savannah renteria was seen, as this information can be updated by other users. Medical History (Updated 10/12/25 @ 12:56 by Sangeeta Brand DO) Active labor SROM (spontaneous rupture of membranes) Advanced maternal age affecting , antepartum UTI (urinary tract infection) during Hematuria without proteinuria Breech presentation Hx of attention deficit hyperactivity disorder Surgical History (Updated 10/12/25 @ 12:55 by Sangeeta Brand DO) Hx of wisdom tooth extraction Hx of knee surgery Hx of section Family History Grandmother Cancer Paternal- Breast cancer Social History (Updated 10/12/25 @ 12:33 by Mahsa Bradley RN) Smoking Status: Never smoker alcohol intake: never substance use type: denies use current occupational status: unemployed Travel in the last 8 weeks?: None do you feel safe at home: Yes victim of physical abuse: No victim of emotional abuse: No victim of sexual abuse: No Contact w/someone who lives/traveled outside [place] past 30 days?: No Exposure to someone with infectious disease in past 14 days?: No Do you have a fever (greater than 100.4 F or 38 C)?: No Have you tested positive for COVID-19?: No Exposed to someone with COVID-19 in past 14 days?: No Do you have a sore throat?: No Do you have a cough?: No Do you have any weakness?: No Are you experiencing any nausea/vomitting?: No Do you have any diarrhea?: No Are you experiencing any unusual bleeding?: No Do you have any muscle aches/pain?: No Do you have any abdominal pain?: No Are you experiencing loss of taste or smell?: No Other Medical History Have you received the Flu Vaccine for this season: No Have you received the Pneumonia Vaccine: No Meds Home Medications and Allergies Home Medications ?Medication ?Instructions ?Recorded ?Confirmed ?Type omega-3 fatty acids 1,000 mg 1,000 mg PO DAILY 5 10/12/25 History capsule vits no.126-ferrous fum 1 tab PO DAILY 10/12/25 History 28 mg iron-folic acid 800 mcg tablet (Classic ) ferrous sulfate 325 mg (65 mg 325 mg PO DAILY 04/13/25 10/12/25 History iron) tablet,delayed release lactobacillus combination no.4 3 3,000 mmu cells PO DA JULIA 08/30/25 10/12/25 History billion cell capsule (Probiotic) New Prescriptions to Start Prescriptions: Allergies Allergy/AdvReac Type Severity Reaction Status Date / Time No Known Allergies Allergy Verified 10/10/25 09:16 OB - H&P: Exam Physical Exam Vital signs: Temp Pulse Resp BP Pulse Ox O2 Del Method 97.8 F 85 18 114/71 98 Room Air 10/11/25 21:52 10/11/25 21:52 10/11/25 21:52 10/11/25 21:52 10/11/25 21:52 10/11/25 21:52 Constitutional no acute distress and cooperative Routine HEENT Exam Head: Present normocephalic and atraumatic Eye: Absent conjunctivae pink ENT: Present mucous membranes moist Routine Neck Exam Present full ROM Routine Respiratory Exam Present CTA bilaterally and normal respiratory effort Routine Cardiovascular Exam Present RRR Routine Abdominal Exam Present soft (Gravid); Absent tenderness Routine Rectal Exam Comments: + hemorrhoids on visual exam Routine Exam External: Present normal urethra appearance; Absent erythema, swelling, tenderness, lesions or lacerations Routine Extremities Exam Present full ROM; Absent edema or calf tenderness Routine Neurological Exam Present alert, moving all extremities and normal speech Routine Psychiatric Exam Present normal affect and cooperative Detailed Labor and Delivery Exam Dilation (cm): 1 Effacement (%): 50 station: -2 Membranes: spontaneously ruptured Amniotic fluid: clear Baseline heart rate: 125 monitor accelerations: Present monitor decelerations: None assisted variability: Moderate (11-25) OB - Results Labs Labs: Short CBC 10/11/25 Range/Units 18:56 WBC 9.5 (4.8-10.8) K/mm3 Hgb 13.0 (12.2-16.2) g/dL Hct 35.8 L (37.0-47.0) % Plt Count 229 (142-424) K/mm3 Urine 10/11/25 Range/Units 18:16 Urine Color Yellow (Yellow) Urine Appearance Clear (Clear) Urine pH 6.5 (5.0-8.5) Ur Specific [place] 1.010 (1.005-1.030) Urine Protein Negative (Negative) Urine Glucose (UA) Negative (Negative) OB - A/P Antepartum (1) SROM (spontaneous rupture of membranes): Status: Acute (2) Active labor: Status: Acute (3) Advanced maternal age affecting , antepartum: Status: Acute (4) Hx of section: Problem details: x 1 Status: Acute (5) Short interval between pregnancies affecting , antepartum: Status: Acute Additional Plan Planning to breastfeed?: Yes Plan: expectant management Additional Information:: Admit to [facility] for SROM and active labor. History of x 1. She requests trial of labor after Will continue to monitor and let her labor on her own GBS negative
--- NOTE | 2025-10-12 08:50 | EXP.DN ---
Delivery Note Delivery Date:: 10/12/25 Delivery Time:: 08:19 Anesthesia Type: Local Was labor medically induced?: No Induction method: none Gestational age (weeks): 38 delivered prior to 39 weeks?: Yes Justification for early elective delivery:: Active Labor Infant Gender: Male at 1 minute: 8 at 5 minutes: 9 LAC or MLE?: LAC Delivery Procedure:: Mom complete without epidural. Pushed for approximately 25 minutes. Head delivered spontaneously over intact perineum in MANSI position. No nuchal cord. Mild shoulder dystocia resolved with Kathleen maneuver and suprapubic pressure. Anterior shoulder delivered with these interventions within 20 seconds. Posterior shoulder and remainder of body delivered spontaneously. Baby placed on maternal abdomen, mouth and nares bulb suctioned, warmed/dried and stimulated. Delayed cord clamping was performed for 10 minutes per patient request. Cord was clamped and cut by father of baby. Cord blood was obtained. Placenta delivered spontaneously and intact. Second degree perineal laceration repaired with 3-0 Vicryl. Mom and baby were skin to skin and doing well after delivery. Live male baby (baby's name is Travis), weight pending APGARs 8 (1 min), 9 (5 min) EBL 200 mL Placental Delivery Description: Spontaneous
[2025-10-12] MEDS: IBUPROFEN 400 MG TABLET 800 MG PO ×2 (12:35→20:13)
[2025-10-12 13:37] LABS: RPR W/RFX Titers Nonreactive (Nonreactive)
[2025-10-12] MEDS: BENZOCAINE-MENTHOL SPRAY 56GM CAN TP (18:20)
[2025-10-12] MEDS: WITCH HAZEL 40 PADS/BOX 1 EACH TP (20:12)
[2025-10-12] MEDS: SENNA 8.6MG TABLET 8.6 MG PO (20:13)
[2025-10-13] MEDS: IBUPROFEN 400 MG TABLET 800 MG PO ×2 (04:02→13:13)
[2025-10-13 06:12] LABS: Hematocrit 31.5 % (37.0-47.0); Hemoglobin 10.7 g/dL (12.2-16.2)
--- NOTE | 2025-10-13 12:13 | EXP.DC.SUM ---
General Admission date:: 10/11/25 Discharge date: 10/13/25 HPI HPI HPI: PPD # 1 s/p Feeling well. Pain controlled. Breast feeding. Lochia is appropriate. Voiding without difficulty and passing flatus. Tolerating regular diet. Denies fever/chills, chest pain and shortness of breath. No headaches, vision changes, lightheadedness/dizziness. No lower extremity swelling. Ambulating well ad nieves. Hospital Course Hospital Course Hospital Course: Mrs Lis Reddy is a 40 yo at 38w5d who presented to [facility] L&D on 10/11/25 with complaint of leakage of fluid. She first noticed leakage of fluid around 0200 on 10/11. She reports membrane sweep at office visit 10/10. She had an BPP and ADRIENNE the mornong of 10/11. BPP 8/8 and ADRIENNE 14.84. She admits to further leakage of fluid after ultrasound. On L&D she was examined and Amnisure was positive. Cervical exam was 1.5/50/-2. She admits to irregular contractions. Baby was active. She has had good care. GBS negative She progressed to complete without any intervention or epidural. She had a spontaneous vaginal delivery on 10/12/25 at 0819. She delivered a live male baby, Travis, weighing 8 lb 0 oz. APGARs 8 (1 min), 9 (5 min). EBL 200 mL. She did well . Pain controlled. Breast feeding. Light lochia. Voiding without difficulty and passing flatus. Tolerating regular diet. Denies fever/chills, chest pain and shortness of breath. No headaches, dizziness/lightheadedness or vision changes. Vital signs stable, afebrile. Heart regular rate and rhythm. Lungs clear to auscultation. Abdomen soft, nontender. No lower extremity swelling. Ambulating well ad nieves. Normal hospital course. She was discharged to home on PPD # 1 with instructions to follow-up in the office in 2 weeks or sooner if needed. Exam Data for Last 24 hours Vital signs and Labs for Last 24 Hours: Temp Pulse Resp BP Pulse Ox O2 Del Method 97.8 F 85 18 114/71 98 Room Air 10/11/25 21:52 10/11/25 21:52 10/11/25 21:52 10/11/25 21:52 10/11/25 21:52 10/11/25 21:52 Laboratory Results - last 24 hr 10/11/25 18:56: RPR w/Rflx to Titer Nonreactive 10/13/25 05:15: Hgb 10.7 L, Hct 31.5 L I & O for Last 24 hours: Intake & Output 10/10/25 10/11/25 10/12/25 10/13/25 23:59 23:59 23:59 23:59 Intake Total 327.75 / 327.75 Balance 327.75 / 327.75 Weight 167 lb 0.002 oz Constitutional Constitutional: no acute distress and cooperative *Routine HEENT Exam Head: Present normocephalic and atraumatic Eye: Absent conjunctivae pink ENT: Present mucous membranes moist *Routine Neck Exam Neck: Present full ROM *Routine Respiratory Exam Respiratory: Present CTA bilaterally and normal respiratory effort *Routine Cardiovascular Exam Cardiovascular: Present RRR *Routine Abdominal Exam Abdominal: Present soft *Routine Rectal Exam Patient deferred: visual exam *Routine Exam Patient deferred: external exam *Routine Extremities Exam Extremities: Present full ROM; Absent edema or calf tenderness *Routine Neurological Exam Neurological: Present alert, moving all extremities and normal speech Routine Psychiatric Exam Psychiatric: Present normal affect and cooperative Results Data Completed and Pending Labs on day of discharge: Labs from last 24 hours 10/13/25 10/11/25 05:15 18:56 Hgb 10.7 L Hct 31.5 L RPR w/Rflx to Titer Nonreactive DS: Diagnosis Discharge Diagnosis (1) , delivered, current hospitalization: Status: Acute Code(s): O34.219 - Maternal care for unspecified type scar from previous delivery (2) SROM (spontaneous rupture of membranes): Status: Acute (3) Active labor: Status: Acute (4) Advanced maternal age affecting , antepartum: Status: Acute (5) Hx of section: Status: Acute Code(s): Z98.891 - History of uterine scar from previous surgery Problem details: x 1 (6) Short interval between pregnancies affecting , antepartum: Status: Acute Code(s): O09.899 - Supervision of other high risk pregnancies, unspecified trimester Meds Home Medications and Allergies Home Medications ?Medication ?Instructions ?Recorded ?Confirmed ?Type omega-3 fatty acids 1,000 mg 1,000 mg PO DAILY 03/17/25 10/12/25 History capsule vits no.126-ferrous fum 1 tab PO DAILY 03/17/25 10/12/25 History 28 mg iron-folic acid 800 mcg tablet (Classic ) ferrous sulfate 325 mg (65 mg 325 mg PO DAILY 04/13/25 10/12/25 History iron) tablet,delayed release lactobacillus combination no.4 3 3,000 mmu cells PO DAILY 08/30/25 10/12/25 History billion cell capsule (Probiotic) New Prescriptions to Start Prescriptions: Allergies Allergy/AdvReac Type Severity Reaction Status Date / Time No Known Allergies Allergy Verified 10/10/25 09:16 Discharge Plan Disposition Patient Disposition: Home, Self-Care Condition: Good Discharge Order Discharge Orders: Discharge Order (Routine); Ordered 10/13/25 Ordered By: Sangeeta Brand Follow up Plan Follow up with: Katie Watts DO [Primary Care Provider, [facility]] - 10/31/25 10:45 am Prescriptions/Medication Reconciliation: Continued Classic 28 mg iron- 800 mcg tablet 1 tab PO DAILY omega-3 fatty acids 1,000 mg capsule 1,000 mg PO DAILY ferrous sulfate 325 mg (65 mg iron) tablet,delayed release (DR/EC) 325 mg PO DAILY Probiotic 3 billion cell capsule 3,000 mmu cells PO DAILY Rx Instructions: administer with a meal Problem Reconciliation Problems Reviewed?: Yes Patient Discharge Instructions ACTIVITY: Limited activity DIET: continue same diet and regular diet Additional Instructions: Congratulations! Discharge: 1. Take 800 mg Ibuprofen every 8 hours as needed for pain. You can also take 500-1000 mg of Tylenol in between doses, every 6-8 hours if needed. 2. Nothing in the vagina for 6 weeks - no intercourse, douching or tampons. No tub baths/hot tubs or swimming pools 3. Reasons to return to L&D or call On-Call doctor - fever (greater than 100.4) - heavy vaginal bleeding (soaking through 1 pad in less than 2 hours) - vaginal discharge (malodorous and/or purulent) - severe headaches not resolved by medication or rest 4. depression/blues - Normal to feel anxious/overwhelmed for first 2 weeks - Talk to your doctor if: severe anxiety, trouble bonding with baby, withdrawing from other family members, thoughts of harming yourself or others Sangeeta Brand DO [facility] [phone] Patient Instructions: Depression, Hemorrhage, DI for Pre-eclampsia, DI for Vaginal After Section (), [facility] Post Discharge Instructions Print Language: Serbian Providers Primary Care Provider: Katie Watts Admit Provider: Nash Villafuerte Attending Provider: Nash Villafuerte
== END 2025-10-13 15:48 | disposition home or self-care (01) | DRG 807 ==
LOC: OBOUT 19:24 → OB 19:24
PROVIDERS: Obstetrics & Gynecology; Admitting Provider Nurse Practitioner Obstetrics & Gynecology; PCP Obstetrics & Gynecology; Visit Provider Nurse Practitioner Obstetrics & Gynecology
DX: O42.02 Full-term premature rupture of membranes, onset of labor within 24 hours of rupture (principal); Z37.0 Single live birth; Z3A.38 38 weeks gestation of pregnancy; O34.219 Maternal care for unspecified type scar from previous cesarean delivery; O66.0 Obstructed labor due to shoulder dystocia; O70.1 Second degree perineal laceration during delivery; Z23 Encounter for immunization
CPT/HCPCS: 36415; 59025; 81001; 84112; 85014; 85018; 85025; 86592; 86850